=== PATIENT | male | born 1985 | race American Indian/Alaskan Native ===

== ENCOUNTER 2017-11-11 20:43 | Inpatient (IN) | payer OTHER ==
[2017-11-11 22:09] LABS: Basophils % (Auto) 0.7 % (0.0-1.8); Eosinophils # (Auto) 0.2 K/mm3 (0.0-0.4); Eosinophils % (Auto) 3.6 % (0.0-4.3); Hematocrit 43.2 % (35.5-45.6); Hemoglobin 14.8 gm/dl (11.8-15.2); Lymphocytes # (Auto) 2.2 K/mm3 (1.2-5.4); Mean Corpuscular HGB Conc 34 % (32-34); Mean Corpuscular Hemoglobin 31 pg (28-32); Mean Corpuscular Volume 89 fl (84-94); Monocytes # (Auto) 0.7 K/mm3 (0.0-0.8); Monocytes % (Auto) 11.5 % (0.0-7.3); Platelet Count 220 K/mm3 (140-440); Red Blood Count 4.85 M/mm3 (3.65-5.03); Red Cell Distribution Width 13.5 % (13.2-15.2)
[2017-11-11 22:20] LABS: Alanine Aminotransferase 12 units/L (7-56); Albumin 3.9 g/dL (3.9-5); BUN/Creatinine Ratio 12; Blood Urea Nitrogen 11 mg/dL (9-20); Hemolysis Index 11
[2017-11-11] MEDS ORDERED: ZOFRAN IV ONE (23:54)
[2017-11-11] MEDS ORDERED: NACL 0.9% 1000 ML 1,000 ML IV ONE (23:54)
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
[2017-11-12 00:19] LABS: Lipase 84 units/L (13-60)
[2017-11-12 00:52] LABS: Bilirubin,Urine NEG (Negative); Blood,Urine NEG (Negative); Calcium Oxalate Crystals,Urine 1+; Color,Urine Yellow (Yellow); Mucus,Urine 3+ /HPF; Protein,Urine <15 mg/dL mg/dL (Negative)
[2017-11-12] MEDS ORDERED: ASPIRIN ONE (00:55)
[2017-11-12] MEDS ORDERED: ASPIRIN PO ONE (01:13)
[2017-11-12 01:23] LABS: Amphetamine Screen,Urine PRESUMPTIVE NEGATIVE; Benzodiazepines Screen,Urine PRESUMPTIVE NEGATIVE; Cocaine Screen,Urine PRESUMPTIVE NEGATIVE; Methadone Screen,Urine PRESUMPTIVE NEGATIVE; Opiate Screen,Urine PRESUMPTIVE NEGATIVE
[2017-11-12 01:37] LABS: Cannabinoid Screen,Urine PRESUMPTIVE POSITIVE
--- NOTE | 2017-11-12 02:49 | Cat Scan Report ---
FINAL REPORT PROCEDURE: CT ABDOMEN PELVIS W CON TECHNIQUE: Computerized axial tomography of the abdomen and pelvis was performed after the IV injection of iodinated nonionic contrast. HISTORY: Abdominal Pain COMPARISON: No prior studies are available for comparison. FINDINGS: Visualized lower thorax: There are fibrotic changes at the right lung base. There are no active infiltrates.. Liver: Normal size and attenuation. Spleen: Normal size and attenuation. Gallbladder and biliary system: Normal. Pancreas: Normal. Adrenals: Normal. Kidneys: Normal. GI tract: There is no bowel obstruction, colitis or enteritis. The appendix is normal.. Lymph nodes and mesentery: Normal. Vasculature: Normal. Bladder: Normal. Reproductive organs: Normal. Peritoneum: There is no ascites or free air, abscess or adenopathy.. Musculoskeletal structures: No significant abnormality. Other: None. IMPRESSION: There is no acute intra-abdominal abnormality.
[2017-11-12] MEDS ORDERED: MORPHINE IV PRN (03:47)
[2017-11-12] MEDS ORDERED: ZOFRAN IV PRN (03:47)
[2017-11-12] MEDS: NACL 0.9% 1000 ML 1,000 ML IV SCH ×2 (05:05→22:38)
--- NOTE | 2017-11-12 08:48 | History and Physical Report ---
History of Present Illness Date of examination: 11/12/17 Date of admission: 11/12/17 01:54 Chief complaint: Abdominal pain History of present illness: Pt is a 32 y/o male who presented to the ED, on account of abdominal pain, with nausea and vomiting., No diarrhea, no fever, abdominal pain is intermittent, squeezing, began yesterday, does lifting at work but nothing unusual from his daily routine. Has vomited multiple times in the last two days, once here in the ER. Has had frequent episodes similar symptom. At [facility] Ed, CT abdomen and pelvis were normal. Past History Past Medical History: other (abdominal pain, n/v) Past Surgical History: No surgical history Medications and Allergies Allergies Allergy/AdvReac Type Severity Reaction Status Date / Time No Known Allergies Allergy Verified 11/12/17 01:10 Home Medications Medication Instructions Recorded Confirmed Last Taken Type No Known Home Medications [No 11/12/17 11/12/17 Unknown History Reported Home Medications] Active Meds: Active Medications Sodium Chloride (Nacl 0.9% 1000 Ml) 1,000 mls @ 75 mls/hr IV DIRECT ABBIE Last Admin: 11/12/17 05:05 Dose: 75 mls/hr Morphine Sulfate (Morphine) 2 mg IV Q4H PRN PRN Reason: Pain, Moderate (4-6) Ondansetron HCl (Zofran) 4 mg IV Q4H PRN PRN Reason: Nausea And Vomiting Review of Systems Constitutional: anorexia, poor appetite, no fever, no chills Ears, nose, mouth and throat: no deferred, no ear pain, no ear discharge, no tinnitis Cardiovascular: no chest pain, no orthopnea, no palpitations, no rapid/ irregular heart beat Respiratory: no cough, no cough with sputum, no excessive sputum, no hemoptysis , no shortness of breath Gastrointestinal: abdominal pain, nausea, vomiting, no diarrhea, no constipation Genitourinary Male: no dysuria, no hematuria, no flank pain Musculoskeletal: no neck pain Integumentary: no rash, no pruritis Exam - Constitutional Vitals: Temp Pulse Resp BP Pulse Ox 98.0 F 50 L 18 104/44 100 11/12/17 08:08 11/12/17 08:08 11/12/17 08:08 11/12/17 08:08 11/12/17 08:08 General appearance: Present: no acute distress, well-nourished - EENT Eyes: Present: PERRL - Neck Neck: Present: supple, normal ROM - Respiratory Respiratory effort: normal Respiratory: bilateral: CTA - Cardiovascular Heart Sounds: Present: S1 & S2. Absent: rub, click - Extremities Extremities: pulses symmetrical, No edema Peripheral Pulses: within normal limits - Abdominal General gastrointestinal: Present: tender, non-distended, normal bowel sounds - Integumentary Integumentary: Present: clear, warm, dry - Musculoskeletal Musculoskeletal: gait normal, strength equal bilaterally - Psychiatric Psychiatric: appropriate mood/affect, intact judgment & insight - Neurologic Neurologic: CNII-XII intact, moves all extremities Results - Labs CBC & Chem 7: 11/11/17 21:44 11/11/17 21:44 Labs: Abnormal lab results 11/11/17 11/11/17 Range/Units 21:44 21:46 [place] % (Auto) 11.5 H (0.0-7.3) % Amylase 141 H (27-131) units/L Lipase 84 H (13-60) units/L Assessment and Plan - Abdominal pain Possible gastroparesis iv protonix, Zofran - Nause and vomiting iv zofran and ivf - Bradycardia Asyntomatic - DVT PPX with SCD and lovenox
[2017-11-12 10:07] LABS: Alanine Aminotransferase 12 units/L (7-56); BUN/Creatinine Ratio 9; Blood Urea Nitrogen 9 mg/dL (9-20); Calcium 8.8 mg/dL (8.4-10.2); Hemolysis Index 7
[2017-11-12] MEDS: PROTONIX IV SCH ×2 (12:00→22:39)
[2017-11-12] MEDS ORDERED: LOVENOX SUB-Q SCH (22:00)
[2017-11-13 08:55] VITALS: BP 115/73
--- NOTE | 2017-11-13 08:58 | Discharge Summary ---
Providers - Providers Date of Admission: 11/12/17 01:54 Date of discharge: 11/13/17 Attending physician: AMBROSIO JASSO 11/12/17 08:54 Consult to Physician [CONS] Routine Consulting Provider: AGNES BENNETT Reason For Exam: GI BLEED Place consult to:: Dr. Aviles Notified:: PLEASE CALL MD IN AM Was contact made?: Yes Comment:: said to place patient on list Primary care physician: [employer] Hospitalization Reason for admission: Abdomional pain, N/v Condition: Stable Pertinent studies: abdomen that was unremarkable Procedures: none Hospital course: Pt is a 32 y/o male who presented to the ED, on account of abdominal pain, with nausea and vomiting. No diarrhea, no fever, abdominal pain is intermittent, squeezing, began yesterday, does lifting at work but nothing unusual from his daily routine. Has vomited multiple times in the last two days, once here in the ER. Has had frequent episodes similar symptom. At the ED, CT abdomen and pelvis were normal. Pt was commence on protonix, Zofran and ivf on admission. Abdminal pain, N/V resolved. He was tolerating regular diet. He is therefore being discharged today to f/u with PCP in 3-5 day and outpt GI in 7 days Disposition: DC-01 TO HOME OR SELFCARE Time spent for discharge: 33mins Core Measure Documentation - Palliative Care Palliative Care/ Comfort Measures: Not Applicable - Core Measures Any of the following diagnoses?: none Exam - Constitutional Vitals: Temp Pulse Resp BP Pulse Ox 97.9 F 49 L 16 102/41 98 11/13/17 00:08 11/13/17 00:08 11/13/17 00:08 11/13/17 00:08 11/13/17 00:08 General appearance: Present: no acute distress, well-nourished - EENT Eyes: Present: PERRL - Neck Neck: Present: supple, normal ROM - Respiratory Respiratory effort: normal Respiratory: bilateral: CTA - Cardiovascular Heart Sounds: Present: S1 & S2. Absent: rub, click - Extremities Extremities: pulses symmetrical, No edema Peripheral Pulses: within normal limits - Abdominal General gastrointestinal: Present: soft, non-tender, non-distended, normal bowel sounds - Integumentary Integumentary: Present: clear, warm, dry - Musculoskeletal Musculoskeletal: gait normal, strength equal bilaterally - Psychiatric Psychiatric: appropriate mood/affect, intact judgment & insight - Neurologic Neurologic: CNII-XII intact, moves all extremities Plan Activity: fall precautions Diet: regular Follow up with: PRIMARY CARE, [Primary Care Provider] - 3-5 Days Prescriptions: Omeprazole 20 mg PO QDAC #30 tablet.
[2017-11-13 09:24] LABS: Alanine Aminotransferase 13 units/L (7-56); Albumin 4.1 g/dL (3.9-5); BUN/Creatinine Ratio 11; Blood Urea Nitrogen 9 mg/dL (9-20); Calcium 8.8 mg/dL (8.4-10.2); Hemolysis Index 90
[2017-11-13] MEDS ORDERED: PROTONIX PO SCH (10:00)
== END 2017-11-13 13:00 | disposition home or self-care (01) | DRG 391 ==
LOC: ED 20:43 → 3A 11-12 01:54
PROVIDERS: ADMIT Internal Medicine; ATTEND Family Medicine
DX: K31.84 Gastroparesis (principal); K85.90 Acute pancreatitis without necrosis or infection, unspecified; R00.1 Bradycardia, unspecified; F17.200 Nicotine dependence, unspecified, uncomplicated
CPT/HCPCS: 36415; 74177; 80053; 80307; 80320; 81001; 82150; 83690; 84484; 85025; 93005; 93010; 93306; 96361; 96374; 99406; C9113; G0480; J1650; J2405; J7030; Q9967

== ENCOUNTER 2021-07-09 16:44 | Emergency (ER) | payer SELFPAY | END 2021-07-09 19:00 | LOC: ED 16:44 | DX: R10.9 Unspecified abdominal pain (principal); R11.10 Vomiting, unspecified; Z53.21 Procedure and treatment not carried out due to patient leaving prior to being seen by health care provider ==